=== PATIENT | male | born 1985 | race African-American/Black ===

== ENCOUNTER 2020-03-04 05:20 | Day surgery (SDC) | payer OTHER ==
[~2020-03-04] VITALS: Ht 180.3 cm; Wt 86.2 kg
[~2020-03-04 05:20] MED LIST: CELEXA40 MG PO; HYDROXYZINE HCL10 MG PO; KLONOPIN1 MG PO; LITHOBID 300 M300 MG PO; SEROQUEL100 MG PO
[2020-03-04 06:28] VITALS: BP 130/47; Ht 180.3 cm; Wt 86.2 kg
--- NOTE | 2020-03-04 07:10 | NUR ---
DR. AVERY NOTIFIED AND REVIEWED PT'S BEHAVIOR AND ASSESSMENT RESULTS. PT IS A LOW RISK PER DR. AVERY. DR. AVERY STATED TO GIVE RESOURCES TO PT AT TIME OF DISCHARGE. NO FURTHER ORDERS AT THIS TIME. RESOURCES REVIEWED WITH PT AND HE VERBALIZED UNDERSTANDING.
--- NOTE | 2020-03-04 09:57 | NUR ---
PATIENT STATED NO PAIN AT THIS TIME. EDUCATED ON POPLITEAL AND FEMORAL BLOCK.
--- NOTE | 2020-03-04 10:25 | NUR ---
1025 ANESTHESIA NOTIFIED THE BLOCK IS NOT WORKING AND PAIN LEVEL 01/11
--- NOTE | 2020-03-04 10:52 | NUR ---
1041 ANESTHESIA HERE TO RE BLOCK LEG
--- NOTE | 2020-03-04 12:55 | NUR ---
1135 IV REMOVED AND INSTRUCTIONS GIVEN
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
== END 2020-03-04 11:50 | disposition home or self-care (01) ==
LOC: D.OPS 05:20 → D.PAN 10:25 → D.OPS 10:25 → D.PAN 10:45 → D.OPS 11:50 → D.PAN 12:00 → D.OPS 12:00
PROVIDERS: ATTEND Orthopaedic Surgery
DX: M25.562 Pain in left knee (principal); S83.512D Sprain of anterior cruciate ligament of left knee, subsequent encounter; X58.XXXD Exposure to other specified factors, subsequent encounter